=== PATIENT | female | born 1995 | race African-American/Black ===

== ENCOUNTER 2018-03-21 00:58 | Emergency (ER) | payer OTHER ==
[~2018-03-21] VITALS: Ht 149.9 cm; Wt 70.0 kg
[2018-03-21 01:12] VITALS: BP 158/82
[2018-03-21 02:45] LABS: URINE HCG NEGATIVE (NEG)
[2018-03-21 02:59] LABS: CLARITY,URINE CLEAR (Clear); COLOR,URINE YELLOW (Yellow); GLUCOSE, URINE NEGATIVE (Neg); KETONES,URINE 15 mg/dl (Neg); LEUKOCYTE ESTERASE ,URINE NEGATIVE (Neg); NITRITES, URINE NEGATIVE (Neg); OCCULT BLOOD,URINE MODERATE (Neg); PROTEIN,URINE NEGATIVE (Neg); UROBILINOGEN,URINE 0.2 E.U/dL (0.2-1.0)
[2018-03-21 03:02] LABS: UA COLLECTION TYPE CLN CATCH MIDSTREAM
[2018-03-21 03:08] LABS: BACTERIA,URINE FEW /HPF (Neg); MUCUS STRANDS FEW /LPF (Neg); RBC,URINE 0-2 /HPF (0-2); SQUAMOUS EPITHELIAL CELL,UR FEW /LPF (FEW); WBC,URINE 0-4 /HPF (0-4); YEAST FEW /HPF (NEGATIVE)
== END 2018-03-21 03:28 | disposition home or self-care (01) ==
LOC: ER 00:59
DX: K29.20 Alcoholic gastritis without bleeding (principal); F14.10 Cocaine abuse, uncomplicated; F12.10 Cannabis abuse, uncomplicated
CPT/HCPCS: 81001; 81025; 99284